=== PATIENT | male | born 1960 | race Hispanic/Latino ===

== ENCOUNTER 2020-08-03 14:08 | Emergency (ER) | payer OTHER ==
[~2020-08-03] VITALS: Ht 170.2 cm; Wt 89.4 kg
[2020-08-03] MEDS ORDERED: TYLENOL # 31 EA PO (16:27)
[2020-08-03] MEDS ORDERED: ZOFRAN4 MG SL (16:27)
== END 2020-08-03 17:07 | disposition home or self-care (01) ==
LOC: ER 14:53
DX: U07.1 COVID-19 (principal); J12.82 Pneumonia due to coronavirus disease 2019
CPT/HCPCS: 71045; 99283; U0002